=== PATIENT | male | born 1970 | race Caucasian/White ===

== ENCOUNTER 2025-07-06 15:06 | Emergency (ER) | payer MEDICAID, OTHER ==
[~2025-07-06] VITALS: Ht 185.4 cm; Wt 86.2 kg
[2025-07-06] MEDS ORDERED: ONDANSETRON 4 MG/2 ML VIAL ONE (15:30)
[2025-07-06] MEDS ORDERED: HYDROMORPHONE 1 MG/1 ML DISP.SYRIN ONE ×2 (15:31→17:27)
[2025-07-06 15:34] LABS: PLATELET COUNT (AUTO) 343 K/uL (152-348); RED BLOOD CELL COUNT(AUTO) 4.81 MIL/uL (4.06-5.63); RED CELL DISTRIBUTION WIDTH 13.3 % (12.1-16.2); WHITE BLOOD COUNT (AUTO) 14.7 K/uL (3.6-10.2)
[2025-07-06] MEDS: ONDANSETRON 4 MG/2 ML VIAL IV ONE (15:37)
[2025-07-06] MEDS: HYDROMORPHONE 1 MG/1 ML DISP.SYRIN IV ONE ×2 (15:37→17:31)
[2025-07-06 15:39] LABS: CREATININE 0.9 mg/dL (0.6-1.3); SODIUM SERUM 140.0 mmol/L (136-145); UREA NITROGEN, BLOOD 10.0 mg/dL (7-18)
[2025-07-06] MEDS: IV NORMAL SALINE 1000 ML BAG IV ONE (15:44)
[2025-07-06 15:45] LABS: ASPARTATE AMINOTRANSFERASE 11.0 U/L (15-37); TOTAL PROTEIN, SERUM 8.1 g/dL (6.4-8.2)
[2025-07-06] MEDS ORDERED: KETOROLAC TROMETHAMINE 30 MG INJ ONE (16:30)
[2025-07-06] MEDS: KETOROLAC TROMETHAMINE 30 MG INJ IVP ONE (16:34)
[2025-07-06 16:56] LABS: *BILIRUBIN,URIN NEGATIVE (NEGATIVE); *CLARITY,URINE CLEAR (CLEAR); *COLOR,URINE LIGHT YELLOW (YELLOW); *KETONES,URINE NEGATIVE (NEGATIVE); *PROTEIN,URINE NEGATIVE (NEGATIVE); *UROBILINOGEN,URINE 0.2 E.U./dl (NORMAL); LEUKOCYTE ESTERASE ,URINE NEGATIVE (NEGATIVE); NITRITE, URINE NEGATIVE (NEGATIVE); UGLUCOSE NEGATIVE (NEGATIVE)
[2025-07-06 17:01] LABS: *BLOOD, URINE TRACE (NEGATIVE)
[2025-07-06 17:09] LABS: SQUAMOUS EPITHELIAL CELL,UR NONE SEEN /HPF (NONE SEEN)
[2025-07-06 18:09] VITALS: BP 144/96
[2025-07-06] MEDS ORDERED: OXYC-128 PO (18:58)
[2025-07-06] MEDS ORDERED: ONDA4TAB5 PO (18:58)
[2025-07-06] MEDS ORDERED: KETO10TA2 PO (18:58)
[2025-07-06 19:15] VITALS: BP 138/90; O2SAT 98
== END 2025-07-06 19:17 | disposition home or self-care (01) ==
LOC: ER 15:06
DX: N13.2 Hydronephrosis with renal and ureteral calculous obstruction (principal); R11.0 Nausea; I10 Essential (primary) hypertension
CPT/HCPCS: 99285; 74176; 96374; 96375; 96361; 80076; 80048; 81001; 85025; 36415; 93005; 96376; J1885; J2405; J1171 ×2; J7040; A4606; A4663